=== PATIENT | male | born 1970 | race Two or more races ===

== ENCOUNTER 2016-07-31 23:20 | Emergency (ER) | payer SELFPAY ==
[2016-08-01] MEDS ORDERED: SULF20OR7 PO (08:36)
[2016-08-01] MEDS ORDERED: CEPH-443 PO (08:36)
== END 2016-08-01 01:22 | disposition left against medical advice (07) ==
LOC: E/R 23:20
DX: Z53.21 Procedure and treatment not carried out due to patient leaving prior to being seen by health care provider (principal)

== ENCOUNTER 2016-08-01 05:27 | Emergency (ER) | payer MEDICAID ==
[~2016-08-01] VITALS: Ht 182.9 cm; Wt 81.8 kg
[2016-08-01 05:30] VITALS: Ht 182.9 cm; Wt 81.8 kg
--- NOTE | 2016-08-01 06:33 | ERA ---
ER Documentation Chief Complaint Date/Time DATE: 08/01/16 TIME: 06:31 Chief Complaint BACK ABSCESS X 2 DAYS DENIES FEVERS. HPI 45-year-old male with a chief complaint of an abscess drained 2 days ago. Patient denies any medical conditions. Patient has not done anything to improve the wound at this time. Pt denies weight loss, fevers, nausea, vomiting , diarrhea, constipation, hyperhidrosis, rigors, fatigue, difficulty breathing, chest pain, or change in bowl/bladder habits. ROS All systems reviewed and are negative except as per history of present illness. Medications Home Meds Active Scripts Sulfamethoxazole/Trimethoprim (Sulfatrim 800-160 mg/20 ml Dannielle) 800-160 mg/20 mL Susp, 5 ML PO BID for 7 Days, BOTTLE Prov:RUBY MATTHEWS PA-C 08/01/16 Cephalexin* (Keflex*) 500 Mg Capsule, 500 MG PO QID for 5 Days, CAP Prov:RUBY MATTHEWS PA-C 08/01/16 Allergies Allergies: Coded Allergies: No Known Allergy (Unverified , 08/01/16) PMhx/Soc Medical and Surgical Hx: pt denies Medical Hx, pt denies Surgical Hx Hx Alcohol Use: Yes (occassional) Hx Substance Use: No Hx Tobacco Use: Yes Smoking Status: Current every day smoker Physical Exam Vitals Vital Signs Date Time Temp Pulse Resp B/P Pulse Ox O2 Delivery O2 Flow Rate FiO2 08/01/16 09:08 98.9 84 21 133/85 98 Room Air 08/01/16 05:30 97.9 104 20 159/83 98 Physical Exam Const: [] Head: Atraumatic Eyes: Normal Conjunctiva ENT: Normal External Ears, Nose and Mouth. Neck: Full range of motion..~ No meningismus. Resp: Clear to auscultation bilaterally Cardio: Regular rate and rhythm, no murmurs Abd: Soft, non tender, non distended. Normal bowel sounds Skin: No petechiae or rashes Back: No midline or flank tenderness Ext: No cyanosis, or edema Neur: Awake and alert Psych: Normal Mood and Affect Results 24 hrs Current Medications Medications (Trade) Dose Ordered Sig/Roe Route PRN Reason Start Time Stop Time Status Last Admin Dose Admin Acetaminophen/ Hydrocodone Bitart ([place] (5/325)) 1 tab ONCE ONCE PO 08/01/16 09:00 08/01/16 09:01 DC 08/01/16 09:07 Procedures/MDM Patient has an abscess roughly 6 inches from the midline. There are no neuro symptoms. Patient's abscess was drained using 8 mm of lidocaine without epi and a 1 cm horizontal incision over the middle of the abscess. There is minimal induration after drainage. Have presented this case to my attending and he agrees with assessment and plan as well as not packing. Departure Diagnosis: Primary Impression: Abscess Additional Impression: Acute abscess Condition: Stable Additional Instructions: Follow up with your PCP within the next 1-3 days for a more thorough evaluation and a possible referral to a specialist. Return the the emergency department immediately if symptoms worsen or change. If you have any questions regarding medications, ask your pharmacist or us before you leave. If any adverse reactions occur while taking your medications, discontinue the treatment and return to the emergency department immediately. Take your medications as directed, and complete the entire course of treatment. RUBY MATTHEWS PA-C August 01, 2016 06:33
[2016-08-01] MEDS ORDERED: CEPH-443 PO (08:36)
[2016-08-01] MEDS ORDERED: SULF20OR7 PO (08:36)
[2016-08-01] MEDS ORDERED: HYDROCODONE/APAP (5/325) TAB PO ONE (09:00)
[2016-08-01 09:08] VITALS: BP 133/85; PULSE 84; RESP 21; TEMP 98.9
== END 2016-08-01 09:12 | disposition home or self-care (01) ==
LOC: FTE 05:27
DX: L02.212 Cutaneous abscess of back [any part, except buttock and flank] (principal); F17.210 Nicotine dependence, cigarettes, uncomplicated
CPT/HCPCS: 10060; Z7502; Z7610

== ENCOUNTER 2016-09-18 07:17 | Emergency (ER) | payer MEDICAID ==
[~2016-09-18] VITALS: Ht 182.9 cm; Wt 83.0 kg
[~2016-09-18 07:17] MED LIST: CEPH-443 PO; SULF20OR7 PO
[2016-09-18 07:19] VITALS: Ht 182.9 cm; Wt 83.0 kg
[2016-09-18] MEDS ORDERED: CEPH-443 PO (08:24)
[2016-09-18] MEDS ORDERED: SULF1TAB31 PO (08:24)
--- NOTE | 2016-09-18 08:35 | ERD ---
ER Documentation Chief Complaint Date/Time DATE: 09/18/16 TIME: 08:28 Chief Complaint ABSCESS HPI 46-year-old male patient with with a previous history of abscess on his left upper back presents to the ED complaining of a recurrent abscess that occurred 2 days ago. Patient reports that it did improve with the incision and drainage , Bactrim and Keflex for the last several weeks but feels like it is coming back 2 days ago. Denies any fever or pain. Denies any increased redness or swelling. Patient reports that he feels like discharge could be forming under the abscess however denies any spontaneous drainage. States that he has not followed up with his primary care physician. Denies any back pain, flank pain, urgency, frequency, hematuria. ROS All systems reviewed and are negative except as per history of present illness. Medications Home Meds Active Scripts Cephalexin* (Keflex*) 500 Mg Capsule, 500 MG PO QID for 7 Days, CAP Prov:JEOVANY ALVARENGA PA-C 09/18/16 Sulfamethoxazole/Trimethoprim* (Bactrim Ds* Tablet) 1 Each Tablet, 1 TAB PO BID for 7 Days, #14 TAB Prov:JEOVANY ALVARENGA PA-C 09/18/16 Sulfamethoxazole/Trimethoprim (Sulfatrim 800-160 mg/20 ml Dannielle) 800-160 mg/20 mL Susp, 5 ML PO BID for 7 Days, BOTTLE Prov:RUBY MATTHEWS PA-C 08/01/16 Cephalexin* (Keflex*) 500 Mg Capsule, 500 MG PO QID for 5 Days, CAP Prov:RUBY MATTHEWS PA-C 08/01/16 Allergies Allergies: Coded Allergies: No Known Allergy (Unverified , 08/01/16) PMhx/Soc Medical and Surgical Hx: pt denies Medical Hx, pt denies Surgical Hx Hx Alcohol Use: Yes ("Every other day") Hx Substance Use: Yes (Marijuana) Hx Tobacco Use: Yes Smoking Status: Current every day smoker Physical Exam Vitals Vital Signs Date Time Temp Pulse Resp B/P Pulse Ox O2 Delivery O2 Flow Rate FiO2 09/18/16 07:19 98.6 100 18 160/93 100 Physical Exam Const: [id number], well-nourished. In no acute distress. Head: Atraumatic, normocephalic Eyes: Normal Conjunctiva without injection. No purulent discharge. ENT: Normal external ear, nose. Moist oropharynx without tonsillar exudates. Non -erythematous pharynx. Uvula midline. No drooling. No trismus. Neck: No cervical midline tenderness. Full range of motion. No meningismus. No cervical lymphadenopathy. No JVD. Resp: Clear to auscultation bilaterally. No wheezing, rhonchi, rales, or crackles. No accessory muscle use. No retractions. Cardio: Regular rate and rhythm. No murmurs, rubs or gallops. Abd: Soft, nontender, non distended. Normal bowel sounds. No palpable masses. No rebound tenderness. No guarding. Negative McBurney's point. Negative psoas sign. Negative obturator sign. Skin: No petechiae or rashes Back: No midline tenderness. No CVA tenderness. 2 cm healed abscess with no fluctuance or induration -brownish in color with well healing likely secondary to scarring. No erythema, edema. No bleeding noted. No spontaneous purulent discharge drainage. Ext: No cyanosis, or edema. Neur: Awake and alert. Normal gait. Normal coordination. Psych: Normal Mood and Affect Procedures/MDM This is a 46-year-old male patient with no significant past medical history presents to the ED complaining of an abscess on his left side of the back. Patient is afebrile and nontoxic-appearing. Patient has normal vital signs. Patient is appropriate for outpatient antibiotics at this time. There is no fluctuance. No indication for incision and drainage at this time. Recommended 2 day wound check for further evaluation. Low suspicion for scabies, SJS/TEN, erythema multiforme, sepsis, cellulitis, necrotizing fascitis, gangrene, meningococcemia or other emergent conditions. Patient is ambulating here in the ED without difficulty. Denies saddle anesthesia, numbness or tingling, urine or bowel incontinence, weakness. Low suspicion for cauda equina syndrome, cord compression, nephrolithiasis, aortic aneurysm, aortic dissection, epidural abscess, spinal hematoma, malignancy, pyelonephritis, or other emergent conditions. Keflex and Bactrim was prescribed to patient. Instructed patient to return to the ED sooner for any worsening symptoms such as redness, fever, increased swelling or pain. Follow up with primary care physician or return to the ED in 2 days for a wound check. Patient's questions were answered. Patient understood and agreed with discharge plan. Departure Diagnosis: Primary Impression: Abscess Condition: Stable Patient Instructions: Abscess, Antiobiotic Treatment Only Referrals: [facility] YOU HAVE RECEIVED A MEDICAL SCREENING EXAM AND THE RESULTS INDICATE THAT YOU DO NOT HAVE A CONDITION THAT REQUIRES URGENT TREATMENT IN THE EMERGENCY DEPARTMENT. FURTHER EVALUATION AND TREATMENT OF YOUR CONDITION CAN WAIT UNTIL YOU ARE SEEN IN YOUR DOCTORS OFFICE WITHIN THE NEXT 1-2 DAYS. IT IS YOUR RESPONSIBILITY TO MAKE AN APPOINTMENT FOR FOLOW-UP CARE. IF YOU HAVE A PRIMARY DOCTOR --you should call your primary doctor and schedule an appointment IF YOU DO NOT HAVE A PRIMARY DOCTOR YOU CAN CALL OUR PHYSICIAN REFERRAL HOTLINE AT IF YOU CAN NOT AFFORD TO SEE A PHYSICIAN YOU CAN CHOSE FROM THE FOLLOWING [facility] [address] [facility]. [facility] [address] [facility]. [facility] [address] [facility] [address] [facility] [address] [facility] [facility] [address] [facility]. [facility] YOU HAVE RECEIVED A MEDICAL SCREENING EXAM AND THE RESULTS INDICATE THAT YOU DO NOT HAVE A CONDITION THAT REQUIRES URGENT TREATMENT IN THE EMERGENCY DEPARTMENT. FURTHER EVALUATION AND TREATMENT OF YOUR CONDITION CAN WAIT UNTIL YOU ARE SEEN IN YOUR DOCTORS OFFICE WITHIN THE NEXT 1-2 DAYS. IT IS YOUR RESPONSIBILITY TO MAKE AN APPOINTMENT FOR FOLOW-UP CARE. IF YOU HAVE A PRIMARY DOCTOR --you should call your primary doctor and schedule and appointment IF YOU DO NOT HAVE A PRIMARY DOCTOR YOU CAN CALL OUR PHYSICIAN REFERRAL HOTLINE AT . IF YOU CAN NOT AFFORD TO SEE A PHYSICIAN YOU CAN CHOSE FROM THE FOLLOWING [facility]: [facility] [address] [place] [address] [facility] [address] [place] [address] [facility] [address] [place] [address] [facility] URGENT CARE/SPECIALTIES Additional Instructions: Follow up in 2 days in your clinic for wound check. Call your primary care doctor TOMORROW for an appointment during the next 2-3 days. Family doctor resources have been provided to you. See the doctor sooner or return here if your condition worsens before your appointment time - fever, chills, worsening pain of the abscess area, increased redness or swelling. JEOVANY ALVARENGA PA-C Sep 18, 2016 08:35 JEOVANY ALVARENGA PA-C Sep 18, 2016 08:35
== END 2016-09-18 08:33 | disposition home or self-care (01) ==
LOC: FTE 07:17
DX: L02.212 Cutaneous abscess of back [any part, except buttock and flank] (principal); F17.210 Nicotine dependence, cigarettes, uncomplicated
CPT/HCPCS: 99284